=== PATIENT | female | born 1975 ===

== ENCOUNTER 2021-02-24 14:29 | Emergency (ER) | payer BC, OTHER ==
[~2021-02-24] VITALS: Ht 185.4 cm; Wt 108.9 kg
[2021-02-24 16:18] VITALS: BP 103/77
[2021-02-24] MEDS ORDERED: cefTRIAXone SOD 1,000 MG VL IM ONE (17:30)
[2021-02-24] MEDS ORDERED: ACETAMINOPHEN 500 MG TAB PO ONE (17:30)
== END 2021-02-24 18:52 | disposition home or self-care (01) ==
LOC: ER 14:29
DX: J18.9 Pneumonia, unspecified organism (principal); J02.9 Acute pharyngitis, unspecified; Z20.822 Contact with and (suspected) exposure to COVID-19
CPT/HCPCS: 36415; 71045; 87070; 87426; 87880; 96372; 99284; J0696